=== PATIENT | female | born 1955 | race Caucasian/White ===

== ENCOUNTER 2019-06-05 09:34 | Day surgery (SDC) | payer OTHER, SELFPAY ==
[2019-06-05 09:58] VITALS: BP 130/78; PULSE 81; RESP 16; TEMP 36.6; O2SAT 100; BMI 22.8
[2019-06-05] MEDS: SODIUM CHLORIDE 0.9% 1,000 ML 200 ML IV (10:06)
--- NOTE | 2019-06-05 10:28 | PM.HP.1 ---
History of Present Illness History of Present Illness Date Patient Seen: 06/05/19 Time Patient Seen: 10:28 Chief complaint: [id number] SCREENING COLONOSCOPY Narrative: 63-year-old woman 10 years status post most recent screening colonoscopy No family history of colon or rectal cancers, or polyps. Never had polyps personally Tolerated the prep well Patient History Social History household members: spouse Family & Social History Social History: household members spouse Meds Home Medications and Allergies Allergies Allergy/AdvReac Type Severity Reaction Status Date / Time No Known Drug Allergies Allergy Verified 06/05/19 10:06 Review of Systems Constitutional Constitutional: Denies fever(s) Eyes Eyes: Denies bulging eyes ENT Ears, Nose, Mouth, and Throat: No lip swelling Cardiovascular Cardiovascular: Denies generalize swelling Respiratory Respiratory: Denies stridor Gastrointestinal Gastrointestinal: Denies coffee ground emesis Musculoskeletal Musculoskeletal: Denies loss of height Integumentary/Breasts Skin/Breast: Denies wounds Neurologic Neurologic: Denies abnormal speech and Denies confusion Psychiatric Psychiatric: Denies confusion and Denies tactile hallucinations Endocrine Endocrine: Denies deepening of the voice Hematologic/Lymphatic Hematologic/Lymphatic: Denies lymphadenopathy Allergic/Immunologic Allergic/Immunologic: Denies lip swelling Exam Vital Signs (past 8 hours): - 06/05/19 09:58 Temperature 97.8 F Pulse Rate 81 Respiratory Rate 16 Blood Pressure 130/78 Pulse Oximetry 100 Oxygen Delivery Method Room Air Const General: cooperative and healthy appearing Orientation: alert HENMT Head: normal to inspection Nose: nares normal Mouth: oral mucosae normal and lip normal Eyes Eyelids: eyelids normal Conjunctivae: conjunctivae normal Sclera: sclerae normal Neck Neck: supple and other (No thyromegally) Chest Chest: other (LCTAB , regular respiratory effort) Cardio Rhythm: regular rhythm Heart Sounds: S1 normal, S2 normal, no gallops, no murmurs and no rubs GI Other: Abdomen soft nontender nondistended Skin General: no rashes or lesions noted Neuro General: alert and awake Psych Appearance: grossly normal Affect: normal affect Assessment & Plan Assessment & Plan narrative: 63-year-old woman presents for 2nd screening colonoscopy last 10 years ago Risks and benefits of the procedure discussed Risks including bleeding, perforation, , hypoxia, missed lesion all discussed All questions answered Patient ready to proceed
--- NOTE | 2019-06-05 11:11 | PM.OP.ENDO ---
Operative Date/Time/Diagnoses Date of procedure: 06/05/19 Time of procedure: 11:11 Pre-op diagnosis: colorectal cancer screening Post-op diagnosis: same Procedure & Clinicians Study performed: Screening colonoscopy-complete Same procedure as scheduled: Yes Indications: 63-year-old female presents for regular screening colonoscopy, last 10 years ago. No family history of colorectal cancer Surgeon: Masoud Smith Procedure Notes SCOAP/Timeout: Completed Procedure in detail: Patient was brought to the endoscopy suite, a time-out was completed. She was sedated over the entire course of the procedure with 5 mg of midazolam and 100 micro g of fentanyl. A digital rectal exam was performed without concern. 160 cm pediatric colonoscope was introduced into the anus and navigated through the folds of the rectum and colon until the cecum was reached. The transverse colon in particular was quite tortuous requiring multiple maneuvers to pass through. The cecum was readily identified via the appendiceal orifice and a prominent ileocecal valve. Scope was then slowly withdrawn no mucosal based lesions were seen. The scope was retroflexed in the distal rectum there were some small internal hemorrhoids in all 3 columns. Prep was adequate Patient tolerated the procedure well Scope withdrawal time: 9 Sedation minutes: 19 Specimen(s): none sent Complications: none Impression: Internal hemorrhoids -small No polyps Post-procedure Recommendations: Colonscopy in 10 years Plan for aftercare: PACU then home Follow up: as needed Disposition: PACU
[2019-06-05] MEDS: fentaNYL 250 MCG/5 ML INJ IV (11:12)
[2019-06-05] MEDS: MIDAZOLAM 5 MG/5 ML VIAL IV (11:12)
[2019-06-05 11:14] VITALS: BP 107/72; PULSE 86; RESP 14; TEMP 36.8; O2SAT 98
[2019-06-05 11:19] VITALS: BP 124/70; PULSE 92; RESP 18; O2SAT 98
[2019-06-05 11:23] VITALS: BP 128/79; PULSE 85; RESP 20; TEMP 36.7; O2SAT 98
== END 2019-06-05 11:38 | disposition home or self-care (01) ==
LOC: ENDO 09:35
PROVIDERS: Visit Provider Surgery
PROC: 0DJD8ZZ Inspection of Lower Intestinal Tract, Via Natural or Artificial Opening Endoscopic (ICD-10-PCS; CPT 45378; principal; 2019-06-05 10:45)
DX: Z12.11 Encounter for screening for malignant neoplasm of colon (principal); K64.8 Other hemorrhoids
CPT/HCPCS: 45378; 99152; J2250; J3010